=== PATIENT | female | born 1955 | race Caucasian/White ===

== ENCOUNTER 2016-09-17 09:19 | Emergency (ER) | payer OTHER ==
[2016-09-17 09:33] VITALS: BP 94/56; PULSE 88; TEMP 98.2; BMI 22.1
--- NOTE | 2016-09-17 09:36 | PDOC ---
History of Present Illness - General Chief Complaint: Injury Stated Complaint: RT WRIST PAIN Time Seen by Provider: 09/17/16 09:23 History Source: Patient Exam Limitations: No Limitations - History of Present Illness Initial Comments: 09/17/16 09:43 61y F hx of htn presents with R wrist pain. The patient had a mechanical fall down some steps inside her house last night, states the steps were a bit wonky and multiple people have fallen (new house). She fell las tnight but didnt tell anyone until today when her daugther brought her in for evaluation. Pt states she bumped her head but there was no LOC, n/v, vision change, neck pain, back pain, numness/tingling/weakness, cp, sob, palpitations, n/v, abd pain. pt on ASA Past History - Past Medical History Allergies/Adverse Reactions: Allergies Allergy/AdvReac Type Severity Reaction Status Date / Time No Known Allergies Allergy Verified 09/01/14 02:01 Home Medications: Ambulatory Orders Alprazolam [Xanax] 0.5 mg PO TID 06/14/12 Hydrocodone Bit/Acetaminophen [Vicodin Es 7.5-750] 1 - 2 tab PO TID PRN Ramipril 1.25 mg PO DAILY 09/01/14 HTN: Yes Psychiatric Problems: Yes (anxiety/depression) - Immunization History Td Vaccination: Yes Immunization Up to Date: No - Psycho/Social/Smoking Cessation Hx Anxiety: No Suicidal Ideation: No Smoking Status: Yes Smoking History: Current every day smoker Number of Cigarettes Smoked Daily: 12 'Breaking Loose' booklet given: 09/01/14 Hx Alcohol Use: No Review of Systems - Review of Systems Able to Perform ROS?: Yes Comments:: 09/17/16 09:45 Constitutional - no reported Fever, Chills, HEENT: no reported vision changes, sore throat Respiratory: no reported cough, sob, hemoptysis Cardiac: no reported chest pain, palpitations, light headedness, leg swelling Abd/GI: no reported abd pain, nausea, vomiting, blood per rectum, melena, diarrhea : no reported dysuria, frequency, discharge Musculskelatal - +R wrist pain skin - no reported bruising, erythema, rash neurological: no reported headache, numbness, focal weakness, tingling, ataxia, hematologic: no reported anemia, easy bruising, easy bleeding *Physical Exam - Physical Exam Comments: 09/17/16 09:45 GENERAL: The patient is awake, alert, and fully oriented, Nontoxic - in no acute distress. HEAD: Normocephalic, atraumatic. NECK: No focal tenderness in midline, no ecchymosis, stepoffs, normal ROM BACK: No focal tenderness in midline thoracic/lumbar region, ABDOMEN: Soft, nontender, normoactive bowel sounds. No guarding, no rebound. . No CVA tenderness EXTREMITIES: +defomrity of R wrist, mild edema and diffuse tenderness, n/v intact otherwise, normal rom of all other extremities w/o focal bony tenderness Medical Decision Making - Medical Decision Making 09/17/16 09:43 suspect colles fx s/p mechanical fall. no signs of presyncope, no signs of significant head trauma awaitin gxray of wrist will give pt pain meds will reasses 09/17/16 10:21 pts xray noted for colles fx with angulation and articular involvement will consult orthopedics 09/17/16 10:52 case dw from [place] from [facility] orthopedics they looked at the xray - will d/c the pt downstairs for reduction and definitive care as there is articular involvement *DC/Admit/Observation/Transfer Diagnosis at time of Disposition: Closed fracture of wrist Qualifiers: Encounter type: initial encounter Laterality: right Qualified Code(s): S62.101A - Fracture of unspecified carpal bone, right wrist, initial encounter for closed fracture - Discharge Dispostion Disposition: HOME Condition at time of disposition: Stable Admit: No - Referrals Referrals: Carlos Cronin MD [Staff Physician] - - Patient Instructions Printed Discharge Instructions: DI for Wrist Fracture Additional Instructions: Proceed directly down to Dr. Cronin/Margy office. They will see you and will reduce and stabilize your wrist fracture. Print Language: CYMRO
[2016-09-17] MEDS ORDERED: MAG HYDROX/AL HYDROX/SIMETH 355 ML ORAL.SUSP PO ONE (09:41)
[2016-09-17] MEDS ORDERED: MAG HYDROX/AL HYDROX/SIMETH 30 ML UNIT-DOSE CUP ONE (10:00)
== END 2016-09-17 11:02 | disposition home or self-care (01) ==
LOC: FER 09:19
DX: S52.501A Unspecified fracture of the lower end of right radius, initial encounter for closed fracture (principal); W10.9XXA Fall (on) (from) unspecified stairs and steps, initial encounter; Y93.89 Activity, other specified; Y92.008 Other place in unspecified non-institutional (private) residence as the place of occurrence of the external cause; I10 Essential (primary) hypertension; F41.8 Other specified anxiety disorders; F17.210 Nicotine dependence, cigarettes, uncomplicated
CPT/HCPCS: 73110-TC-RT; 73130-TC-RT; 99282-25

== ENCOUNTER 2016-09-27 13:15 | Day surgery (SDC) | payer OTHER ==
[2016-09-26 10:14] VITALS: BMI 23.8
[2016-09-27] MEDS ORDERED: MIDAZOLAM HCL 2 MG/2 ML SINGLE DOSE VIAL ONE (14:13)
[2016-09-27] MEDS ORDERED: ROPIVACAINE HCL 0.5% 30ML VIAL ONE (14:13)
[2016-09-27] MEDS ORDERED: PROPOFOL 20 ML ONE (14:50)
[2016-09-27 17:43] VITALS: PULSE 68; TEMP 98.2
[2016-09-27 18:15] VITALS: BP 137/74
--- NOTE | 2016-09-28 15:40 | OP ---
DATE OF OPERATION: 09/27/2016 PREOPERATIVE DIAGNOSIS: Right distal radius fracture, intraarticular, complex. POSTOPERATIVE DIAGNOSIS: Right distal radius fracture, intraarticular, complex. PROCEDURE: Right distal radius open reduction and internal fixation. SURGEON: Ashish Costello MD CULVERT INSTALLER: SILVANO Jiang, whose skillful assistance was necessary for the safe and timely performance of this procedure. Ms. Byers was able to assist in limb positioning, fracture reduction, as well as the insertion of orthopedic fixation hardware. She assisted in retraction during this procedure as well. TOURNIQUET TIME: 67 minutes. POSTOPERATIVE CONDITION: Stable. COMPLICATIONS: None. IMPLANTS: Acumed distal radius plate. INDICATIONS: This is a pleasant 61-year-old woman who had suffered a distal radius fracture. Initially, closed reduction was performed in the office which obtained satisfactory reduction. On followup, however, she was noted to have some loss of reduction and this indicated that the fracture was not stable. Treatment options, including continued nonoperative care with malunion versus operative management with open reduction and internal fixation were discussed. Operative management would involve risks including bleeding, infection, neurovascular injury, need for further surgery, postoperative pain and stiffness, nonunion, malunion, hardware failure or cutout, tendon rupture over a long period of time. We discussed medical risks such as heart attack, stroke, DVT, PE and . The patient voiced understanding of all these. She elected to proceed surgically. DESCRIPTION OF PROCEDURE: The patient was brought to the operating room after administration of a regional block in the preoperative holding area. The right upper extremity was then prepped and draped in the usual sterile fashion. A preoperative dose of antibiotics was given and the usual timeout procedure was performed. At this point, an incision was planned out volarly over the FCR tendon. This was carried down through skin to subcutaneous tissue. Blunt spreading was used to expose the FCR tendon sheath. This was then split in line with its fibers. Electrocautery was used to maintain hemostasis throughout this procedure. The FCR was then mobilized ulnarly. The fascia over the pronator was then split in line with its fibers as well, exposing the pronator. The pronator was then elevated off the radial aspect of the distal radius. The fracture site was now exposed, demonstrating moderate comminution. The [place] was inserted into the fracture site in order to mobilize the distal fracture fragment. Given the difficulty obtaining length of the fracture and loss of radial inclination, a brachioradialis tenotomy was now performed in order to provide for better reduction. The narrow plate was then chosen and affixed onto the bone utilizing a single K-wire. This was done through a shaft. Now, the wrist fracture was reduced. However, the dorsal portion of the fracture was not reduced properly. A small incision was made dorsally over Jalyn tubercle. This was carried down through the skin subcutaneous tissue. Blunt spreading was used to the fracture site. A [place] was now inserted into the fracture site. Utilizing a [place], this was used to hold the fracture reduced while 2 K-wires were inserted for the volar side. Satisfactory reduction was now obtained. The plate was now fixed to the shaft utilizing a 3.5 cortical screw. Distal holes were now filled using a combination of screws and pegs which were drilled and then inserted an appropriate length. One screw started cross-threading and this screw was discarded. A second screw was noted to be too close to the articular surface on radiographs in the radial styloid and this was changed out for a shorter screw. The entire construct was examined now both visually and fluoroscopically. Both fracture reduction and hardware placement were satisfactory. The wound was copiously irrigated. The pronator was loosely approximated using 2-0 Vicryl. Subcutaneous tissue was approximated using 2-0 Vicryl. The skin was closed using 4-0 nylon. Sterile dressings were placed. A volar splint was placed. The tourniquet was let down. The patient was extubated and transferred to recovery room in stable condition. Henrique [id number]
== END 2016-09-27 19:07 | disposition home or self-care (01) ==
LOC: FASU 13:15
PROVIDERS: ATTEND Orthopaedic Surgery Sports Medicine
PROC: 0LN50ZZ Release Right Lower Arm and Wrist Tendon, Open Approach (ICD-10-PCS; 2016-09-27)
PROC: 0PSH04Z Reposition Right Radius with Internal Fixation Device, Open Approach (ICD-10-PCS; principal; 2016-09-27 14:43)
DX: S52.571A Other intraarticular fracture of lower end of right radius, initial encounter for closed fracture (principal); X58.XXXA Exposure to other specified factors, initial encounter; Y93.9 Activity, unspecified; Y92.9 Unspecified place or not applicable
CPT/HCPCS: 25290; 25608; C1713; 73110-TC-RT; 94760